=== PATIENT | female | born 1935 | race Caucasian/White ===

== ENCOUNTER → 2018-04-02 | Outpatient (CLI) | payer MEDICARE, BC ==
[~2018-04-02] MED LIST: ASPIR 8181 MG PO; ATACAND32 MG PO; CRESTOR10 MG PO; OMEPRAZOLE 20 M20 M1 PO; TOPROL XL100 MG; TOPROL XL100 MG PO
== END ==
LOC: M.RAD 04-01 13:20
DX: Z12.31 Encounter for screening mammogram for malignant neoplasm of breast (principal)

== ENCOUNTER → 2019-04-05 | Outpatient (CLI) | payer MEDICARE, BC | LOC: M.RAD 12:08 | DX: Z12.31 Encounter for screening mammogram for malignant neoplasm of breast (principal) ==

== ENCOUNTER → 2020-05-11 | Outpatient (CLI) | payer MEDICARE, BC | LOC: M.RAD 10:59 | PROVIDERS: ATTEND Family Medicine | DX: Z12.31 Encounter for screening mammogram for malignant neoplasm of breast (principal); N64.89 Other specified disorders of breast ==